=== PATIENT | female | born 1950 | race Caucasian/White ===

== ENCOUNTER 2017-06-11 09:04 | Day surgery (SDC) | payer MEDICARE ==
[~2017-06-11] VITALS: Ht 144.8 cm; Wt 63.0 kg
[2017-06-11] MEDS ORDERED: SODIUM CHLORIDE 0.9% 1,000 ML IV SCH (09:44)
[2017-06-11] MEDS ORDERED: CEFAZOLIN PMX 1GM/50ML 50 ML IVPB ONE (10:00)
[2017-06-11 10:08] VITALS: BP 99/64
[2017-06-11] MEDS ORDERED: CITA20TA5 PO (10:14)
[2017-06-11] MEDS ORDERED: LOSA50TA6 PO (10:14)
[2017-06-11] MEDS ORDERED: SPIR25TA3 PO (10:14)
== END 2017-06-11 14:35 | disposition home or self-care (01) ==
LOC: OUT 09:04
PROVIDERS: ATTEND Internal Medicine Hematology & Oncology
DX: Z45.2 Encounter for adjustment and management of vascular access device (principal); C21.1 Malignant neoplasm of anal canal; I10 Essential (primary) hypertension; G62.9 Polyneuropathy, unspecified; Z87.39 Personal history of other diseases of the musculoskeletal system and connective tissue; Z90.710 Acquired absence of both cervix and uterus; Z98.890 Other specified postprocedural states
CPT/HCPCS: 36561; 77001; 99156; 99157; C1788; J0690; J1642; J2250; J3010; J3490; J7030

== ENCOUNTER 2017-06-17 10:00 | Inpatient (IN) | payer MEDICARE ==
[~2017-06-17] VITALS: Ht 144.8 cm; Wt 68.6 kg
[~2017-06-17 10:00] MED LIST: CITA20TA5 PO; LOSA50TA6 PO; SPIR25TA3 PO
[2017-06-17 11:56] LABS: BLOOD UREA NITROGEN 16 mg/dL (7-18); HEMATOCRIT 39.3 % (34.6-47.8)
[2017-06-17 11:59] LABS: ASPARTATE AMINO TRANSFERASE 14 U/L (15-37)
[2017-06-17 12:03] VITALS: BP 104/68
[2017-06-17 14:20] VITALS: BP 85/57
[2017-06-17] MEDS ORDERED: FAMOTIDINE 20 MG/2 ML IVPush ONE (15:00)
[2017-06-17] MEDS ORDERED: ONDANSETRON 8 MG, DEXAMETHASONE 10 MG in SODIUM CHLORIDE 0.9% 50 ML IVPB ONE (15:00)
[2017-06-17] MEDS ORDERED: ACETAMINOPHEN 325 MG TABLET PO ONE (15:00)
[2017-06-17] MEDS: SODIUM CHLORIDE 0.9% 1,000 ML IV SCH (15:30)
[2017-06-17] MEDS ORDERED: MITOMYCIN IV ONE (15:30)
[2017-06-17] MEDS ORDERED: SODIUM CHLORIDE 0.9% IV ONE (15:30)
[2017-06-17] MEDS: ENOXAPARIN 40 MG/0.4 ML SQ SCH (17:35)
[2017-06-17] MEDS: FLUOROURACIL 1,500 MG in SODIUM CHLORIDE 0.9% 1,000 ML IV SCH (18:37)
[2017-06-17 19:36] VITALS: BP 96/62
[2017-06-18 03:09] VITALS: BP 94/62
[2017-06-18] MEDS: SODIUM CHLORIDE 0.9% 1,000 ML IV SCH ×3 (03:45→20:30)
[2017-06-18 08:00] VITALS: BP 116/74
[2017-06-18] MEDS: SPIRONOLACTONE 25 MG TABLET PO SCH (09:31)
[2017-06-18] MEDS: CITALOPRAM 20 MG TABLET PO SCH (09:31)
[2017-06-18] MEDS: LOSARTAN 50MG TABLET PO SCH (09:32)
[2017-06-18 11:09] LABS: HEMOGLOBIN 11.2 g/dL (11.7-16.4); WHITE BLOOD COUNT 7.2 x10^3/uL (3.4-10)
[2017-06-18 11:22] LABS: ASPARTATE AMINO TRANSFERASE 10 U/L (15-37); BLOOD UREA NITROGEN 13 mg/dL (7-18)
[2017-06-18 12:45] VITALS: BP 104/70
[2017-06-18] MEDS: ONDANSETRON 8 MG in SODIUM CHLORIDE 0.9% 50 ML IVPB SCH (15:30)
[2017-06-18] MEDS: FAMOTIDINE 20 MG/2 ML IVPush SCH (15:46)
[2017-06-18] MEDS: ENOXAPARIN 40 MG/0.4 ML SQ SCH (16:56)
[2017-06-18 19:42] VITALS: BP 97/62
[2017-06-18] MEDS: FLUOROURACIL 1,500 MG in SODIUM CHLORIDE 0.9% 1,000 ML IV SCH (21:36)
[2017-06-19 01:29] VITALS: BP 100/58
[2017-06-19] MEDS: SODIUM CHLORIDE 0.9% 1,000 ML IV SCH ×2 (04:00→15:10)
[2017-06-19 04:30] LABS: HEMATOCRIT 32.8 % (34.6-47.8); HEMOGLOBIN 10.8 g/dL (11.7-16.4); WHITE BLOOD COUNT 6.2 x10^3/uL (3.4-10)
[2017-06-19 04:40] LABS: BLOOD UREA NITROGEN 12 mg/dL (7-18)
[2017-06-19 04:45] LABS: ASPARTATE AMINO TRANSFERASE 15 U/L (15-37)
[2017-06-19 07:19] VITALS: BP 134/88
[2017-06-19] MEDS: CITALOPRAM 20 MG TABLET PO SCH (07:22)
[2017-06-19] MEDS: SPIRONOLACTONE 25 MG TABLET PO SCH (07:22)
[2017-06-19] MEDS: LOSARTAN 50MG TABLET PO SCH (07:22)
[2017-06-19] MEDS: ONDANSETRON ODT 4 MG PO PRN (13:29)
[2017-06-19 13:55] VITALS: BP 87/58
[2017-06-19] MEDS: ONDANSETRON 8 MG in SODIUM CHLORIDE 0.9% 50 ML IVPB SCH (15:10)
[2017-06-19] MEDS: FAMOTIDINE 20 MG/2 ML IVPush SCH (15:12)
[2017-06-19] MEDS: ENOXAPARIN 40 MG/0.4 ML SQ SCH (17:10)
[2017-06-19 19:46] VITALS: BP 90/54
[2017-06-19] MEDS: FLUOROURACIL 1,500 MG in SODIUM CHLORIDE 0.9% 1,000 ML IV SCH (23:09)
[2017-06-20] MEDS: SODIUM CHLORIDE 0.9% 1,000 ML IV SCH
[2017-06-20 02:58] VITALS: BP 95/58
[2017-06-20 06:15] LABS: HEMATOCRIT 32.9 % (34.6-47.8); HEMOGLOBIN 10.9 g/dL (11.7-16.4); WHITE BLOOD COUNT 5.2 x10^3/uL (3.4-10)
[2017-06-20 06:27] LABS: ASPARTATE AMINO TRANSFERASE 14 U/L (15-37); BLOOD UREA NITROGEN 11 mg/dL (7-18)
[2017-06-20 07:19] VITALS: BP 117/77
[2017-06-20] MEDS: CITALOPRAM 20 MG TABLET PO SCH (08:59)
[2017-06-20] MEDS: SPIRONOLACTONE 25 MG TABLET PO SCH (08:59)
[2017-06-20] MEDS: LOSARTAN 50MG TABLET PO SCH (09:00)
[2017-06-20] MEDS: SODIUM CHLORIDE 0.45% 1,000 ML IV SCH (09:20)
[2017-06-20 13:34] VITALS: BP 109/70
[2017-06-20] MEDS: FAMOTIDINE 20 MG/2 ML IVPush SCH (15:03)
[2017-06-20] MEDS: ONDANSETRON 8 MG in SODIUM CHLORIDE 0.9% 50 ML IVPB SCH (15:34)
[2017-06-20] MEDS: ENOXAPARIN 40 MG/0.4 ML SQ SCH (18:27)
[2017-06-20 19:16] VITALS: BP 125/73
[2017-06-21 01:54] VITALS: BP 131/86
[2017-06-21] MEDS: FLUOROURACIL 1,500 MG in SODIUM CHLORIDE 0.9% 1,000 ML IV SCH (03:14)
[2017-06-21] MEDS: SODIUM CHLORIDE 0.45% 1,000 ML IV SCH ×2 (03:35→22:26)
[2017-06-21 04:10] LABS: HEMATOCRIT 33.9 % (34.6-47.8); HEMOGLOBIN 11.2 g/dL (11.7-16.4); WHITE BLOOD COUNT 5.4 x10^3/uL (3.4-10)
[2017-06-21 04:21] LABS: ASPARTATE AMINO TRANSFERASE 15 U/L (15-37); BLOOD UREA NITROGEN 8 mg/dL (7-18)
[2017-06-21] MEDS: ONDANSETRON ODT 4 MG PO PRN ×3 (06:14→20:28)
[2017-06-21 06:16] VITALS: BP 115/74
[2017-06-21] MEDS: SPIRONOLACTONE 25 MG TABLET PO SCH (08:36)
[2017-06-21] MEDS: LOSARTAN 50MG TABLET PO SCH (08:36)
[2017-06-21] MEDS: CITALOPRAM 20 MG TABLET PO SCH (08:36)
[2017-06-21] MEDS: CALCIUM CARBONATE 500 MG TABLET PO SCH (08:36)
[2017-06-21 13:44] VITALS: BP 119/73
[2017-06-21] MEDS: FAMOTIDINE 20 MG/2 ML IVPush SCH (15:19)
[2017-06-21] MEDS: ENOXAPARIN 40 MG/0.4 ML SQ SCH (16:04)
[2017-06-21] MEDS: ONDANSETRON 8 MG in SODIUM CHLORIDE 0.9% 50 ML IVPB SCH (16:04)
[2017-06-21 19:38] VITALS: BP 109/75
[2017-06-22 01:54] VITALS: BP 111/65
[2017-06-22] MEDS: ONDANSETRON ODT 4 MG PO PRN ×3 (02:09→14:56)
[2017-06-22 05:36] LABS: HEMATOCRIT 33.6 % (34.6-47.8); HEMOGLOBIN 11.2 g/dL (11.7-16.4); WHITE BLOOD COUNT 4.7 x10^3/uL (3.4-10)
[2017-06-22 06:02] LABS: ASPARTATE AMINO TRANSFERASE 16 U/L (15-37); BLOOD UREA NITROGEN 6 mg/dL (7-18)
[2017-06-22 07:33] VITALS: BP 127/83
[2017-06-22] MEDS: SPIRONOLACTONE 25 MG TABLET PO SCH (08:03)
[2017-06-22] MEDS: LOSARTAN 50MG TABLET PO SCH (08:04)
[2017-06-22] MEDS: CITALOPRAM 20 MG TABLET PO SCH (08:04)
[2017-06-22] MEDS: CALCIUM CARBONATE 500 MG TABLET PO SCH (08:05)
[2017-06-22] MEDS: SODIUM CHLORIDE 0.45% 1,000 ML IV SCH (11:30)
[2017-06-22 14:23] VITALS: BP 96/86
[2017-06-22] MEDS ORDERED: ONDA4TAB13 PO (15:29)
[2017-06-22] MEDS ORDERED: ONDA4TAB10 PO (16:33)
== END 2017-06-22 17:12 | disposition home or self-care (01) | DRG 849 ==
LOC: 3NW 10:27
PROVIDERS: ADMIT Internal Medicine Hematology & Oncology; ATTEND Internal Medicine Hematology & Oncology
DX: Z51.0 Encounter for antineoplastic radiation therapy (principal); D64.81 Anemia due to antineoplastic chemotherapy; Z51.11 Encounter for antineoplastic chemotherapy; D01.3 Carcinoma in situ of anus and anal canal; M62.81 Muscle weakness (generalized); G47.30 Sleep apnea, unspecified; G62.9 Polyneuropathy, unspecified; M81.0 Age-related osteoporosis without current pathological fracture; T45.1X5A Adverse effect of antineoplastic and immunosuppressive drugs, initial encounter; Z85.048 Personal history of other malignant neoplasm of rectum, rectosigmoid junction, and anus; Z90.710 Acquired absence of both cervix and uterus
CPT/HCPCS: 36415; 77336; 77386; 80053; 81003; 83735; 85025; 87324; J1100; J1650; J2405; J9280; Q0162; J7030; J9190; S0028

== ENCOUNTER 2017-06-25 20:46 | Inpatient (IN) | payer MEDICARE ==
[~2017-06-25] VITALS: Ht 144.8 cm; Wt 58.7 kg
[~2017-06-25 20:46] MED LIST changes: +ONDA4TAB10 PO; +ONDA4TAB13 PO
[2017-06-25] MEDS ORDERED: ALBUTEROL/IPRATROPIUM 2.5MG/0.5MG, 3 ML NPPB ONE (21:00)
[2017-06-25] MEDS ORDERED: SODIUM CHLORIDE 0.9% 1,000 ML IV ONE (21:04)
[2017-06-25 21:17] LABS: HEMATOCRIT 31.8 % (34.6-47.8); HEMOGLOBIN 10.5 g/dL (11.7-16.4)
[2017-06-25 21:19] LABS: WHITE BLOOD COUNT 1.2 x10^3/uL (3.4-10)
[2017-06-25 21:23] LABS: ASPARTATE AMINO TRANSFERASE 53 U/L (15-37); BLOOD UREA NITROGEN 25 mg/dL (7-18)
[2017-06-25] MEDS ORDERED: SODIUM CHLORIDE FLUSH 10ML SYR IVF ONE (21:30)
[2017-06-25] MEDS ORDERED: ALBUTEROL/IPRATROPIUM 2.5MG/0.5MG, 3 ML ONE (21:34)
[2017-06-25 21:42] LABS: DIFF TOTAL CELLS COUNTED 100 CELL DIFF
[2017-06-25 21:50] LABS: VERIFY COUNTS? YES
[2017-06-25 21:52] LABS: ANISOCYTOSIS 1+
[2017-06-25] MEDS ORDERED: OMNIPAQUE 350 MG/ML, 100ML BOTTLE ONE (22:07)
[2017-06-25 22:21] LABS: IS PT STATUS REG ER OR PRE ER? YES
[2017-06-25] MEDS ORDERED: FUROSEMIDE 40 MG/4 ML IV ONE (22:30)
[2017-06-25] MEDS ORDERED: FUROSEMIDE 40 MG/4 ML ONE (22:40)
[2017-06-25] MEDS ORDERED: ONDANSETRON 2MG/ML, 2ML ONE (22:40)
[2017-06-25] MEDS ORDERED: ONDANSETRON 2MG/ML, 2ML IVPush ONE (23:00)
[2017-06-25] MEDS ORDERED: maalox/diphenh/lido/sucralfate 5 ML PO PRN (23:30)
[2017-06-26] MEDS ORDERED: DOCUSATE 100 MG CAPSULE PO PRN
[2017-06-26] MEDS ORDERED: ONDANSETRON 2MG/ML, 2ML IVPush PRN
[2017-06-26] MEDS ORDERED: BISACODYL 10 MG SUPP PR PRN
[2017-06-26] MEDS ORDERED: ENOXAPARIN 40 MG/0.4 ML SQ SCH
[2017-06-26] MEDS ORDERED: METOCLOPRAMIDE 5 MG/ML, 2ML IVPush PRN
[2017-06-26] MEDS ORDERED: PROMETHAZINE 25 MG/ML, 1ML IM PRN
[2017-06-26] MEDS ORDERED: HYDROcodone/APAP 5/325 TABLET PO PRN
[2017-06-26] MEDS ORDERED: POLYETHYLENE GLYCOL 17 GM PACKET PO PRN
[2017-06-26] MEDS ORDERED: VANCOMYCIN PER PHARMACY MC PRN
[2017-06-26 01:05] LABS: IS PT STATUS REG ER OR PRE ER? YES
[2017-06-26 01:20] VITALS: BP 132/85
[2017-06-26 01:23] VITALS: BP 132/85
[2017-06-26] MEDS ORDERED: PHARMACOKINETIC CONSULTATION MC ONE (01:30)
[2017-06-26] MEDS ORDERED: PHARMACOKINETIC MONITORING MC PRN (01:30)
[2017-06-26] MEDS: PIPERACILLIN/TAZO/PMX 3.375GM 50 ML IV SCH ×4 (02:09→20:21)
[2017-06-26] MEDS: VANCOMYCIN 1,300 MG in SODIUM CHLORIDE 0.9% 250 ML IV SCH (02:50)
[2017-06-26 06:01] LABS: HEMATOCRIT 32.7 % (34.6-47.8); HEMOGLOBIN 10.8 g/dL (11.7-16.4)
[2017-06-26 06:07] LABS: IS PT STATUS REG ER OR PRE ER? NO
[2017-06-26 06:32] LABS: ASPARTATE AMINO TRANSFERASE 48 U/L (15-37); BLOOD UREA NITROGEN 21 mg/dL (7-18)
[2017-06-26 06:34] LABS: DIFF TOTAL CELLS COUNTED 100 CELL DIFF
[2017-06-26 06:39] LABS: VERIFY COUNTS? YES
[2017-06-26] MEDS ORDERED: FUROSEMIDE 20 MG/2 ML IV SCH (07:30)
[2017-06-26] MEDS ORDERED: TBO-FILGRASTIM 480 MCG/0.8 ML SQ ONE (08:00)
[2017-06-26 08:19] VITALS: BP 97/64
[2017-06-26] MEDS: SENNA/DOCUSATE TABLET PO SCH (08:27)
[2017-06-26] MEDS: CITALOPRAM 20 MG TABLET PO SCH (08:27)
[2017-06-26] MEDS: ACETAMINOPHEN 325 MG TABLET PO PRN (08:46)
[2017-06-26] MEDS ORDERED: LOSARTAN 50MG TABLET PO SCH (09:00)
[2017-06-26] MEDS: FUROSEMIDE 20 MG/2 ML IV SCH (09:00)
[2017-06-26] MEDS: LOSARTAN 50MG TABLET PO SCH (09:00)
[2017-06-26] MEDS ORDERED: IBUPROFEN 200 MG TABLET PO PRN (09:00)
[2017-06-26] MEDS: SPIRONOLACTONE 25 MG TABLET PO SCH (09:00)
[2017-06-26] MEDS ORDERED: maalox/diphenh/lido/sucralfate 5 ML PO PRN (09:30)
[2017-06-26 13:49] VITALS: BP 135/87
[2017-06-26] MEDS: NYSTATIN 500,000 UNITS/5 ML UDC PO SCH ×3 (14:18→20:21)
[2017-06-26] MEDS: morphine SULFATE 10 MG/ML, 1ML IVPush PRN ×2 (14:35→17:25)
[2017-06-26] MEDS: maalox/diphenh/lido/sucralfate 5 ML PO SCH ×2 (16:00→20:27)
[2017-06-26] MEDS ORDERED: BENZOCAINE 20% SPRAY 0.5ML ONE (16:05)
[2017-06-26] MEDS ORDERED: LIDOCAINE GEL 2%, 5ML ONE (16:05)
[2017-06-26] MEDS ORDERED: OMNIPAQUE 350 MG/ML, 50 ML BOTTLE ONE (17:07)
[2017-06-26 19:22] VITALS: BP 117/78
[2017-06-27 00:50] VITALS: BP 133/83
[2017-06-27] MEDS: PIPERACILLIN/TAZO/PMX 3.375GM 50 ML IV SCH ×4 (02:16→20:18)
[2017-06-27 05:10] LABS: ASPARTATE AMINO TRANSFERASE 35 U/L (15-37); BLOOD UREA NITROGEN 18 mg/dL (7-18)
[2017-06-27 05:29] LABS: IS PT STATUS REG ER OR PRE ER? NO
[2017-06-27 05:34] LABS: HEMATOCRIT 31.7 % (34.6-47.8); HEMOGLOBIN 10.5 g/dL (11.7-16.4)
[2017-06-27 05:36] LABS: WHITE BLOOD COUNT 0.7 x10^3/uL (3.4-10)
[2017-06-27 05:44] LABS: DIFF TOTAL CELLS COUNTED 100 CELL DIFF
[2017-06-27 05:45] LABS: VERIFY COUNTS? YES
[2017-06-27] MEDS: NYSTATIN 500,000 UNITS/5 ML UDC PO SCH ×4 (06:19→20:18)
[2017-06-27] MEDS: maalox/diphenh/lido/sucralfate 5 ML PO SCH ×4 (07:00→20:18)
[2017-06-27 07:37] VITALS: BP 129/78
[2017-06-27] MEDS: FUROSEMIDE 20 MG/2 ML IV SCH (09:00)
[2017-06-27] MEDS: SENNA/DOCUSATE TABLET PO SCH (09:00)
[2017-06-27] MEDS: SPIRONOLACTONE 25 MG TABLET PO SCH (09:24)
[2017-06-27] MEDS: CITALOPRAM 20 MG TABLET PO SCH (09:24)
[2017-06-27] MEDS: LOSARTAN 50MG TABLET PO SCH (09:25)
[2017-06-27] MEDS: TBO-FILGRASTIM 300 MCG/0.5 ML SQ SCH (10:25)
[2017-06-27 13:24] VITALS: BP 143/80
[2017-06-27] MEDS: VANCOMYCIN 1,300 MG in SODIUM CHLORIDE 0.9% 250 ML IV SCH (13:24)
[2017-06-27] MEDS ORDERED: FLUCONAZOLE 200 MG/100 ML 100 ML IV SCH (17:00)
[2017-06-27] MEDS ORDERED: POTASSIUM PHOSPHATE 44 MEQ in SODIUM CHLORIDE 0.9% 500 ML IV ONE (17:00)
[2017-06-27 19:54] VITALS: BP 138/83
[2017-06-28 00:20] VITALS: BP 143/83
[2017-06-28] MEDS ORDERED: ALBUTEROL SULFATE 2.5 MG/3 ML ONE ×2 (01:34→07:38)
[2017-06-28] MEDS: PIPERACILLIN/TAZO/PMX 3.375GM 50 ML IV SCH ×4 (01:35→19:32)
[2017-06-28] MEDS: ALBUTEROL SULFATE 2.5MG/0.5ML NPPB SCH ×2 (01:39→07:00)
[2017-06-28] MEDS: NYSTATIN 500,000 UNITS/5 ML UDC PO SCH ×4 (06:06→19:32)
[2017-06-28 06:16] LABS: BLOOD UREA NITROGEN 17 mg/dL (7-18); HEMATOCRIT 30.1 % (34.6-47.8)
[2017-06-28 06:22] LABS: WHITE BLOOD COUNT 0.4 x10^3/uL (3.4-10)
[2017-06-28 07:02] LABS: DIFF TOTAL CELLS COUNTED 50 CELL DIFFERENTIAL; VERIFY COUNTS? YES
[2017-06-28 07:54] VITALS: BP 136/95
[2017-06-28] MEDS: maalox/diphenh/lido/sucralfate 5 ML PO SCH ×4 (08:55→19:32)
[2017-06-28] MEDS: CITALOPRAM 20 MG TABLET PO SCH (08:56)
[2017-06-28] MEDS: TBO-FILGRASTIM 300 MCG/0.5 ML SQ SCH (08:56)
[2017-06-28] MEDS: FUROSEMIDE 20 MG/2 ML IV SCH (08:56)
[2017-06-28] MEDS: SPIRONOLACTONE 25 MG TABLET PO SCH (08:56)
[2017-06-28] MEDS: LOSARTAN 50MG TABLET PO SCH (08:57)
[2017-06-28] MEDS: SENNA/DOCUSATE TABLET PO SCH (08:57)
[2017-06-28] MEDS ORDERED: POTASSIUM CHLORIDE 40 MEQ in SODIUM CHLORIDE 0.9% 500 ML IV ONE (09:00)
[2017-06-28] MEDS: ALBUTEROL SULFATE 2.5 MG/3 ML NPPB SCH ×3 (11:20→19:57)
[2017-06-28] MEDS: FLUCONAZOLE 400 MG/200 ML 200 ML IV SCH (16:36)
[2017-06-28 20:20] VITALS: BP 177/83
[2017-06-29] MEDS: VANCOMYCIN 1,300 MG in SODIUM CHLORIDE 0.9% 250 ML IV SCH (01:39)
[2017-06-29 02:34] VITALS: BP 148/72
[2017-06-29] MEDS: ALBUTEROL SULFATE 2.5 MG/3 ML NPPB SCH ×5 (03:02→18:30)
[2017-06-29] MEDS: PIPERACILLIN/TAZO/PMX 3.375GM 50 ML IV SCH ×4 (03:47→20:33)
[2017-06-29] MEDS: NYSTATIN 500,000 UNITS/5 ML UDC PO SCH ×4 (06:16→20:34)
[2017-06-29] MEDS: FUROSEMIDE 20 MG/2 ML IV SCH (07:21)
[2017-06-29] MEDS: LOSARTAN 50MG TABLET PO SCH (08:07)
[2017-06-29] MEDS: SPIRONOLACTONE 25 MG TABLET PO SCH (08:07)
[2017-06-29] MEDS: CITALOPRAM 20 MG TABLET PO SCH (08:08)
[2017-06-29] MEDS: maalox/diphenh/lido/sucralfate 5 ML PO SCH ×4 (08:08→20:33)
[2017-06-29 08:43] LABS: BLOOD UREA NITROGEN 19 mg/dL (7-18)
[2017-06-29] MEDS: TBO-FILGRASTIM 300 MCG/0.5 ML SQ SCH (08:54)
[2017-06-29] MEDS: SENNA/DOCUSATE TABLET PO SCH (09:00)
[2017-06-29 09:12] VITALS: BP 148/91
[2017-06-29] MEDS ORDERED: POTASSIUM CHLORIDE 40 MEQ in SODIUM CHLORIDE 0.9% 500 ML IV ONE (10:00)
[2017-06-29 10:46] LABS: HEMATOCRIT 30.9 % (34.6-47.8); HEMOGLOBIN 10.3 g/dL (11.7-16.4); WHITE BLOOD COUNT 0.2 x10^3/uL (3.4-10)
[2017-06-29 10:47] LABS: DIFF TOTAL CELLS COUNTED 25 CELL DIFFERENTIAL
[2017-06-29 10:52] LABS: VERIFY COUNTS? YES
[2017-06-29] MEDS: ACETAMINOPHEN 325 MG TABLET PO PRN (11:41)
[2017-06-29 14:26] VITALS: BP 151/87
[2017-06-29] MEDS: FLUCONAZOLE 400 MG/200 ML 200 ML IV SCH (16:06)
[2017-06-29] MEDS ORDERED: PHARMACOKINETIC MONITORING MC PRN (20:00)
[2017-06-29] MEDS ORDERED: HYDROcodone/APAP 5/325 TABLET PO PRN (20:00)
[2017-06-29] MEDS ORDERED: BISACODYL 10 MG SUPP PR PRN (20:00)
[2017-06-29] MEDS ORDERED: PROMETHAZINE 25 MG/ML, 1ML IM PRN (20:00)
[2017-06-29] MEDS ORDERED: METOCLOPRAMIDE 5 MG/ML, 2ML IVPush PRN (20:00)
[2017-06-29] MEDS ORDERED: ONDANSETRON 2MG/ML, 2ML IVPush PRN (20:00)
[2017-06-29] MEDS ORDERED: DOCUSATE 100 MG CAPSULE PO PRN (20:00)
[2017-06-29 20:10] VITALS: BP 144/91
[2017-06-29] MEDS: morphine SULFATE 10 MG/ML, 1ML IVPush PRN (20:33)
[2017-06-30] MEDS: NYSTATIN 500,000 UNITS/5 ML UDC PO SCH ×4 (02:12→20:30)
[2017-06-30] MEDS: PIPERACILLIN/TAZO/PMX 3.375GM 50 ML IV SCH ×4 (02:12→20:30)
[2017-06-30 02:19] VITALS: BP 152/88
[2017-06-30 05:15] LABS: HEMATOCRIT 28.9 % (34.6-47.8); HEMOGLOBIN 9.6 g/dL (11.7-16.4)
[2017-06-30 05:16] LABS: WHITE BLOOD COUNT 0.3 x10^3/uL (3.4-10)
[2017-06-30 05:29] LABS: BLOOD UREA NITROGEN 18 mg/dL (7-18)
[2017-06-30 05:32] LABS: ASPARTATE AMINO TRANSFERASE 35 U/L (15-37)
[2017-06-30 06:11] LABS: DIFF TOTAL CELLS COUNTED 25 CELL DIFFERENTIAL
[2017-06-30 06:21] LABS: VERIFY COUNTS? YES
[2017-06-30] MEDS: maalox/diphenh/lido/sucralfate 5 ML PO SCH ×4 (07:00→20:31)
[2017-06-30] MEDS: SENNA/DOCUSATE TABLET PO SCH (07:18)
[2017-06-30 07:46] VITALS: BP 158/90
[2017-06-30] MEDS: FUROSEMIDE 20 MG/2 ML IV SCH (08:00)
[2017-06-30] MEDS: ALBUTEROL SULFATE 2.5 MG/3 ML NPPB SCH ×4 (08:00→19:45)
[2017-06-30] MEDS ORDERED: SPIRONOLACTONE 25 MG TABLET PO SCH ×2 (09:00)
[2017-06-30] MEDS ORDERED: POTASSIUM CHLORIDE 20 MEQ TAB.ER.PRT NG SCH (09:00)
[2017-06-30] MEDS ORDERED: LOSARTAN 50MG TABLET PO SCH ×2 (09:00)
[2017-06-30] MEDS: TBO-FILGRASTIM 480 MCG/0.8 ML SQ SCH (11:39)
[2017-06-30] MEDS ORDERED: VANCOMYCIN 1,300 MG in SODIUM CHLORIDE 0.9% 250 ML IV SCH (15:30)
[2017-06-30 16:00] VITALS: BP 152/91
[2017-06-30] MEDS: POTASSIUM CHLORIDE 40 MEQ in SODIUM CHLORIDE 0.9% 500 ML IV SCH (16:10)
[2017-06-30] MEDS ORDERED: ACETAMINOPHEN 325 MG/10.15 ML UDC NG PRN (16:30)
[2017-06-30] MEDS ORDERED: KETOROLAC 30 MG/1 ML IVPush PRN ×2 (17:00)
[2017-06-30] MEDS: FLUCONAZOLE 400 MG/200 ML 200 ML IV SCH (17:38)
[2017-06-30 19:02] VITALS: BP 106/60
[2017-07-01 01:08] VITALS: BP 157/82
[2017-07-01] MEDS: PIPERACILLIN/TAZO/PMX 3.375GM 50 ML IV SCH ×2 (01:38→08:02)
[2017-07-01 04:58] LABS: HEMATOCRIT 27.7 % (34.6-47.8); HEMOGLOBIN 9.3 g/dL (11.7-16.4)
[2017-07-01 04:59] LABS: WHITE BLOOD COUNT 0.8 x10^3/uL (3.4-10)
[2017-07-01 05:00] LABS: ASPARTATE AMINO TRANSFERASE 22 U/L (15-37); BLOOD UREA NITROGEN 18 mg/dL (7-18)
[2017-07-01 05:50] LABS: DIFF TOTAL CELLS COUNTED 100 CELL DIFF
[2017-07-01 05:55] LABS: VERIFY COUNTS? YES
[2017-07-01] MEDS: maalox/diphenh/lido/sucralfate 5 ML PO SCH ×4 (06:06→21:00)
[2017-07-01] MEDS: NYSTATIN 500,000 UNITS/5 ML UDC PO SCH ×4 (06:06→20:59)
[2017-07-01 07:08] VITALS: BP 154/88
[2017-07-01] MEDS: FUROSEMIDE 20 MG/2 ML IV SCH (08:03)
[2017-07-01] MEDS: SENNA/DOCUSATE TABLET PO SCH (08:03)
[2017-07-01] MEDS: ALBUTEROL SULFATE 2.5 MG/3 ML NPPB SCH ×3 (08:35→16:20)
[2017-07-01] MEDS ORDERED: POTASSIUM CHLORIDE 40 MEQ in SODIUM CHLORIDE 0.9% 500 ML IV SCH (09:00)
[2017-07-01] MEDS: POTASSIUM CHLORIDE 40 MEQ in SODIUM CHLORIDE 0.9% 500 ML IV SCH (09:56)
[2017-07-01] MEDS: TBO-FILGRASTIM 480 MCG/0.8 ML SQ SCH (09:56)
[2017-07-01] MEDS ORDERED: POTASSIUM PHOSPHATE 44 MEQ in SODIUM CHLORIDE 0.9% 500 ML IV ONE (10:00)
[2017-07-01] MEDS ORDERED: LIDOCAINE GEL 2%, 5ML ONE (10:20)
[2017-07-01] MEDS: CEFEPIME 2 GM in DEXTROSE 5% 100 ML IV SCH ×2 (12:25→21:00)
[2017-07-01] MEDS: METRONIDAZOLE PMX 500MG/100ML 100 ML IV SCH ×2 (13:15→21:00)
[2017-07-01 13:32] VITALS: BP 135/82
[2017-07-01] MEDS: FLUCONAZOLE 400 MG/200 ML 200 ML IV SCH (15:19)
[2017-07-01 19:32] VITALS: BP 129/75
[2017-07-01] MEDS: morphine SULFATE 10 MG/ML, 1ML IVPush PRN (23:41)
[2017-07-02 02:14] VITALS: BP 140/80
[2017-07-02] MEDS: CEFEPIME 2 GM in DEXTROSE 5% 100 ML IV SCH ×3 (03:02→20:40)
[2017-07-02] MEDS: METRONIDAZOLE PMX 500MG/100ML 100 ML IV SCH ×3 (03:39→19:43)
[2017-07-02] MEDS: maalox/diphenh/lido/sucralfate 5 ML PO SCH ×4 (05:16→19:44)
[2017-07-02] MEDS: NYSTATIN 500,000 UNITS/5 ML UDC PO SCH ×4 (05:16→19:43)
[2017-07-02 05:46] LABS: HEMATOCRIT 27.3 % (34.6-47.8); HEMOGLOBIN 9.2 g/dL (11.7-16.4); WHITE BLOOD COUNT 2.2 x10^3/uL (3.4-10)
[2017-07-02 05:54] LABS: BLOOD UREA NITROGEN 23 mg/dL (7-18)
[2017-07-02 06:23] LABS: DIFF TOTAL CELLS COUNTED 100 CELL DIFF
[2017-07-02 06:27] LABS: VERIFY COUNTS? YES
[2017-07-02 06:49] VITALS: BP 149/84
[2017-07-02] MEDS ORDERED: POTASSIUM PHOSPHATE 44 MEQ in SODIUM CHLORIDE 0.9% 500 ML IV ONE (07:00)
[2017-07-02] MEDS: FUROSEMIDE 20 MG/2 ML IV SCH (08:34)
[2017-07-02] MEDS: POTASSIUM CHLORIDE 40 MEQ in SODIUM CHLORIDE 0.9% 500 ML IV SCH (11:28)
[2017-07-02] MEDS: TBO-FILGRASTIM 480 MCG/0.8 ML SQ SCH (11:43)
[2017-07-02 12:50] VITALS: BP 134/74
[2017-07-02] MEDS: FLUCONAZOLE 400 MG/200 ML 200 ML IV SCH (15:38)
[2017-07-02] MEDS ORDERED: ALBUTEROL SULFATE 2.5 MG/3 ML NPPB PRN (20:00)
[2017-07-02 20:08] VITALS: BP 148/79
[2017-07-03] MEDS: METRONIDAZOLE PMX 500MG/100ML 100 ML IV SCH ×3 (04:00→21:17)
[2017-07-03] MEDS: CEFEPIME 2 GM in DEXTROSE 5% 100 ML IV SCH ×3 (04:00→20:25)
[2017-07-03] MEDS: NYSTATIN 500,000 UNITS/5 ML UDC PO SCH ×4 (06:00→20:25)
[2017-07-03] MEDS: maalox/diphenh/lido/sucralfate 5 ML PO SCH ×4 (07:00→20:25)
[2017-07-03] MEDS ORDERED: MORPHINE SULFATE 4 MG/ML, 1ML ONE (07:57)
[2017-07-03 08:00] VITALS: BP 148/84
[2017-07-03] MEDS: morphine SULFATE 10 MG/ML, 1ML IVPush PRN ×4 (08:00→22:09)
[2017-07-03 08:11] LABS: ABSOLUTE CD 4 HELPER 61 /uL (359-1519); HEMATOCRIT 30.7 % (34.0-46.6); HEMATOLOGY COMMENTS Note: (.); HEMOGLOBIN 10.3 g/dL (11.1-15.9); MCH 30.7 pg (26.6-33.0); MCHC 33.6 g/dL (31.5-35.7); MCV 91 fL (79-97); METAMYELOCYTES 7 % (0 - 0); MONOCYTES 11 % (.); NEUTROPHILS 75 % (.); NEUTROPHILS (ABSOLUTE) 0.9 x10E3/uL (1.4-7.0); NRBC 1 % (0 - 0); PLATELETS 18 x10E3/uL (150-379); RBC 3.36 x10E6/uL (3.77-5.28); RDW 14.6 % (12.3-15.4); WBC 1.2 x10E3/uL (3.4-10.8)
[2017-07-03 08:19] LABS: BLOOD UREA NITROGEN 22 mg/dL (7-18)
[2017-07-03 08:25] LABS: HEMATOCRIT 27.6 % (34.6-47.8); HEMOGLOBIN 9.2 g/dL (11.7-16.4); WHITE BLOOD COUNT 2.6 x10^3/uL (3.4-10)
[2017-07-03] MEDS: FUROSEMIDE 20 MG/2 ML IV SCH (09:00)
[2017-07-03] MEDS: TBO-FILGRASTIM 480 MCG/0.8 ML SQ SCH (09:00)
[2017-07-03 13:40] VITALS: BP 147/76
[2017-07-03 13:46] LABS: DIFF TOTAL CELLS COUNTED 100 CELL DIFF
[2017-07-03 13:58] LABS: ANISOCYTOSIS 1+
[2017-07-03] MEDS ORDERED: SODIUM PHOSPHATE 4 MEQ/ML IV SCH (14:00)
[2017-07-03] MEDS ORDERED: SODIUM PHOSPHATE 30 MMOL in SODIUM CHLORIDE 0.9% 500 ML IV ONE (14:30)
[2017-07-03] MEDS: FLUCONAZOLE 400 MG/200 ML 200 ML IV SCH (15:44)
[2017-07-03 16:53] LABS: VERIFY COUNTS? YES
[2017-07-03 19:20] VITALS: BP 164/87
[2017-07-04 01:05] VITALS: BP 162/87
[2017-07-04 01:28] LABS: HEMATOCRIT 27.9 % (34.6-47.8); HEMOGLOBIN 9.2 g/dL (11.7-16.4); WHITE BLOOD COUNT 3.3 x10^3/uL (3.4-10)
[2017-07-04 01:38] LABS: ASPARTATE AMINO TRANSFERASE 28 U/L (15-37); BLOOD UREA NITROGEN 22 mg/dL (7-18)
[2017-07-04 01:53] LABS: DIFF TOTAL CELLS COUNTED 100 CELL DIFF
[2017-07-04 01:56] LABS: ANISOCYTOSIS 1+; VERIFY COUNTS? YES
[2017-07-04] MEDS: CEFEPIME 2 GM in DEXTROSE 5% 100 ML IV SCH ×3 (04:13→19:50)
[2017-07-04] MEDS: morphine SULFATE 10 MG/ML, 1ML IVPush PRN ×5 (04:13→19:36)
[2017-07-04] MEDS: METRONIDAZOLE PMX 500MG/100ML 100 ML IV SCH ×3 (05:22→20:40)
[2017-07-04] MEDS: NYSTATIN 500,000 UNITS/5 ML UDC PO SCH ×4 (05:55→20:41)
[2017-07-04] MEDS: maalox/diphenh/lido/sucralfate 5 ML PO SCH ×4 (08:00→20:41)
[2017-07-04 08:41] VITALS: BP 142/53
[2017-07-04] MEDS: FUROSEMIDE 20 MG/2 ML IV SCH (09:45)
[2017-07-04 14:19] VITALS: BP 134/80
[2017-07-04] MEDS: FLUCONAZOLE 400 MG/200 ML 200 ML IV SCH (15:57)
[2017-07-04 20:55] VITALS: BP 113/84
[2017-07-04 21:07] LABS: ADENOVIRUS PCR Negative (Negative); INFLUENZA A PCR Negative (Negative); INFLUENZA B PCR Negative (Negative); METAPNEUMOVIRUS PCR Negative (Negative); PARAINFLUENZA 1 PCR Negative (Negative); PARAINFLUENZA 2 PCR Negative (Negative); PARAINFLUENZA 3 PCR Negative (Negative); RESP SYNCYTIAL VIRUS A PCR Negative (Negative); RESP SYNCYTIAL VIRUS B PCR Negative (Negative); RHINOVIRUS PCR Negative (Negative)
[2017-07-05 02:07] VITALS: BP 139/81
[2017-07-05] MEDS: CEFEPIME 2 GM in DEXTROSE 5% 100 ML IV SCH ×3 (03:50→20:01)
[2017-07-05] MEDS: METRONIDAZOLE PMX 500MG/100ML 100 ML IV SCH ×3 (04:35→21:11)
[2017-07-05 04:37] LABS: BLOOD UREA NITROGEN 20 mg/dL (7-18)
[2017-07-05 04:41] LABS: ASPARTATE AMINO TRANSFERASE 44 U/L (15-37)
[2017-07-05 04:50] LABS: HEMATOCRIT 27.7 % (34.6-47.8); HEMOGLOBIN 9.4 g/dL (11.7-16.4); WHITE BLOOD COUNT 3.6 x10^3/uL (3.4-10)
[2017-07-05 05:37] LABS: DIFF TOTAL CELLS COUNTED 100 CELL DIFF
[2017-07-05 05:39] LABS: ANISOCYTOSIS 1+; VERIFY COUNTS? YES
[2017-07-05 05:41] LABS: POLYCHROMASIA 1+
[2017-07-05] MEDS: NYSTATIN 500,000 UNITS/5 ML UDC PO SCH ×5 (05:59→20:01)
[2017-07-05] MEDS: morphine SULFATE 10 MG/ML, 1ML IVPush PRN ×4 (05:59→19:39)
[2017-07-05 06:25] VITALS: BP 129/88
[2017-07-05] MEDS: maalox/diphenh/lido/sucralfate 5 ML PO SCH ×4 (09:40→20:01)
[2017-07-05] MEDS: FUROSEMIDE 20 MG/2 ML IV SCH (09:46)
[2017-07-05 14:15] VITALS: BP 128/55
[2017-07-05] MEDS: FLUCONAZOLE 400 MG/200 ML 200 ML IV SCH (16:03)
[2017-07-05 19:25] VITALS: BP 134/82
[2017-07-05] MEDS ORDERED: MORPHINE SULFATE 4 MG/ML, 1ML ONE (19:34)
[2017-07-06] MEDS: morphine SULFATE 10 MG/ML, 1ML IVPush PRN ×4 (01:20→22:59)
[2017-07-06 01:53] VITALS: BP 131/72
[2017-07-06] MEDS: CEFEPIME 2 GM in DEXTROSE 5% 100 ML IV SCH ×3 (03:24→22:58)
[2017-07-06] MEDS: METRONIDAZOLE PMX 500MG/100ML 100 ML IV SCH ×3 (04:20→20:38)
[2017-07-06] MEDS: NYSTATIN 500,000 UNITS/5 ML UDC PO SCH ×4 (05:49→20:38)
[2017-07-06 06:03] LABS: HEMATOCRIT 28.8 % (34.6-47.8); HEMOGLOBIN 9.5 g/dL (11.7-16.4); WHITE BLOOD COUNT 3.1 x10^3/uL (3.4-10)
[2017-07-06 06:15] LABS: ASPARTATE AMINO TRANSFERASE 44 U/L (15-37); BLOOD UREA NITROGEN 18 mg/dL (7-18)
[2017-07-06 06:41] VITALS: BP 133/80
[2017-07-06 06:50] LABS: DIFF TOTAL CELLS COUNTED 100 CELL DIFF
[2017-07-06 06:59] LABS: ANISOCYTOSIS 1+; LARGE PLATELETS 1+; POLYCHROMASIA 1+
[2017-07-06 07:00] LABS: VERIFY COUNTS? YES
[2017-07-06] MEDS: maalox/diphenh/lido/sucralfate 5 ML PO SCH ×4 (07:00→20:39)
[2017-07-06] MEDS: FUROSEMIDE 20 MG/2 ML IV SCH (09:38)
[2017-07-06] MEDS ORDERED: POTASSIUM CHLORIDE 20 MEQ TAB.ER.PRT PO ONE (11:30)
[2017-07-06 13:16] VITALS: BP 132/79
[2017-07-06] MEDS ORDERED: ONDANSETRON 2MG/ML, 2ML IVPush PRN (15:30)
[2017-07-06] MEDS ORDERED: POLYETHYLENE GLYCOL 17 GM PACKET PO PRN (15:30)
[2017-07-06] MEDS ORDERED: PROMETHAZINE 25 MG/ML, 1ML IM PRN (15:30)
[2017-07-06] MEDS ORDERED: BISACODYL 10 MG SUPP PR PRN (15:30)
[2017-07-06] MEDS ORDERED: METOCLOPRAMIDE 5 MG/ML, 2ML IVPush PRN (15:30)
[2017-07-06] MEDS: FLUCONAZOLE 400 MG/200 ML 200 ML IV SCH (16:17)
[2017-07-06] MEDS ORDERED: POTASSIUM CHLORIDE 40 MEQ in SODIUM CHLORIDE 0.9% 500 ML IV ONE (18:00)
[2017-07-06] MEDS ORDERED: ALBUMIN HUMAN 25% 100 ML IV ONE (19:00)
[2017-07-06 19:34] VITALS: BP 144/82
[2017-07-06] MEDS ORDERED: POTASSIUM CHLORIDE 40 MEQ in SODIUM CHLORIDE 0.9% 100 ML IV SCH (21:00)
[2017-07-06] MEDS ORDERED: MORPHINE SULFATE 4 MG/ML, 1ML ONE (22:55)
[2017-07-07 01:46] VITALS: BP 140/76
[2017-07-07] MEDS: METRONIDAZOLE PMX 500MG/100ML 100 ML IV SCH ×3 (05:02→21:21)
[2017-07-07] MEDS ORDERED: MORPHINE SULFATE 4 MG/ML, 1ML ONE (05:50)
[2017-07-07] MEDS: NYSTATIN 500,000 UNITS/5 ML UDC PO SCH ×4 (05:54→21:21)
[2017-07-07] MEDS: morphine SULFATE 10 MG/ML, 1ML IVPush PRN ×5 (05:54→18:27)
[2017-07-07] MEDS: CEFEPIME 2 GM in DEXTROSE 5% 100 ML IV SCH ×3 (06:45→23:17)
[2017-07-07 08:14] VITALS: BP 138/84
[2017-07-07] MEDS: maalox/diphenh/lido/sucralfate 5 ML PO SCH ×4 (08:30→21:00)
[2017-07-07] MEDS ORDERED: ALBUMIN HUMAN 25% 100 ML IV ONE (10:00)
[2017-07-07 10:40] LABS: HEMATOCRIT 30.5 % (34.6-47.8); HEMOGLOBIN 10.1 g/dL (11.7-16.4)
[2017-07-07 10:41] LABS: DIFF TOTAL CELLS COUNTED 100 CELL DIFF
[2017-07-07 10:50] LABS: ASPARTATE AMINO TRANSFERASE 45 U/L (15-37); BLOOD UREA NITROGEN 14 mg/dL (7-18)
[2017-07-07 11:00] LABS: ANISOCYTOSIS 1+; POLYCHROMASIA 1+; VERIFY COUNTS? YES
[2017-07-07 11:01] LABS: OVALOCYTES 1+
[2017-07-07] MEDS: FUROSEMIDE 20 MG/2 ML IV SCH (12:32)
[2017-07-07 13:30] VITALS: BP 166/70
[2017-07-07] MEDS: FLUCONAZOLE 400 MG/200 ML 200 ML IV SCH (16:27)
[2017-07-07 19:37] VITALS: BP 134/80
[2017-07-08 02:21] VITALS: BP 120/75
[2017-07-08] MEDS: NYSTATIN 500,000 UNITS/5 ML UDC PO SCH ×4 (04:56→20:46)
[2017-07-08] MEDS: METRONIDAZOLE PMX 500MG/100ML 100 ML IV SCH ×3 (04:57→20:46)
[2017-07-08] MEDS: morphine SULFATE 10 MG/ML, 1ML IVPush PRN ×2 (05:09→20:46)
[2017-07-08 05:17] LABS: HEMATOCRIT 27.6 % (34.6-47.8); HEMOGLOBIN 9.3 g/dL (11.7-16.4); WHITE BLOOD COUNT 4.4 x10^3/uL (3.4-10)
[2017-07-08 05:39] LABS: ASPARTATE AMINO TRANSFERASE 41 U/L (15-37); BLOOD UREA NITROGEN 14 mg/dL (7-18)
[2017-07-08] MEDS: maalox/diphenh/lido/sucralfate 5 ML PO SCH ×4 (07:00→20:46)
[2017-07-08] MEDS: CEFEPIME 2 GM in DEXTROSE 5% 100 ML IV SCH ×3 (07:32→22:53)
[2017-07-08 07:38] VITALS: BP 137/80
[2017-07-08] MEDS ORDERED: POTASSIUM PHOSPHATE 44 MEQ in SODIUM CHLORIDE 0.9% 500 ML IV ONE (08:30)
[2017-07-08] MEDS ORDERED: POTASSIUM PHOS 4.4 MEQ/ML IV SCH (08:30)
[2017-07-08] MEDS: FUROSEMIDE 20 MG/2 ML IV SCH (09:50)
[2017-07-08 13:55] VITALS: BP 128/85
[2017-07-08] MEDS: FLUCONAZOLE 400 MG/200 ML 200 ML IV SCH (16:06)
[2017-07-08 19:33] VITALS: BP 137/84
[2017-07-09 01:49] VITALS: BP 131/82
[2017-07-09] MEDS: NYSTATIN 500,000 UNITS/5 ML UDC PO SCH ×4 (05:56→21:03)
[2017-07-09] MEDS: METRONIDAZOLE PMX 500MG/100ML 100 ML IV SCH ×3 (05:56→21:03)
[2017-07-09 06:20] LABS: HEMATOCRIT 26.7 % (34.6-47.8); HEMOGLOBIN 8.9 g/dL (11.7-16.4)
[2017-07-09 06:27] LABS: ASPARTATE AMINO TRANSFERASE 35 U/L (15-37); BLOOD UREA NITROGEN 15 mg/dL (7-18)
[2017-07-09] MEDS: maalox/diphenh/lido/sucralfate 5 ML PO SCH ×4 (07:00→21:00)
[2017-07-09 08:55] VITALS: BP 125/73
[2017-07-09] MEDS: FUROSEMIDE 20 MG/2 ML IV SCH (09:18)
[2017-07-09] MEDS: CEFEPIME 2 GM in DEXTROSE 5% 100 ML IV SCH ×3 (09:18→23:02)
[2017-07-09] MEDS: morphine SULFATE 10 MG/ML, 1ML IVPush PRN (09:19)
[2017-07-09] MEDS ORDERED: SODIUM PHOSPHATE 4 MEQ/ML IV SCH (09:30)
[2017-07-09] MEDS ORDERED: SODIUM PHOSPHATE 30 MMOL in SODIUM CHLORIDE 0.9% 500 ML IV ONE (10:00)
[2017-07-09 15:36] VITALS: BP 133/80
[2017-07-09] MEDS: FLUCONAZOLE 400 MG/200 ML 200 ML IV SCH (17:39)
[2017-07-09 20:01] VITALS: BP 130/80
[2017-07-10 03:54] VITALS: BP 117/66
[2017-07-10] MEDS: METRONIDAZOLE PMX 500MG/100ML 100 ML IV SCH (04:37)
[2017-07-10] MEDS: maalox/diphenh/lido/sucralfate 5 ML PO SCH ×4 (04:37→23:00)
[2017-07-10] MEDS: NYSTATIN 500,000 UNITS/5 ML UDC PO SCH ×4 (04:37→23:13)
[2017-07-10 04:47] LABS: HEMATOCRIT 27.4 % (34.6-47.8); HEMOGLOBIN 9.2 g/dL (11.7-16.4); WHITE BLOOD COUNT 4.9 x10^3/uL (3.4-10)
[2017-07-10 05:08] LABS: ASPARTATE AMINO TRANSFERASE 28 U/L (15-37); BLOOD UREA NITROGEN 15 mg/dL (7-18)
[2017-07-10] MEDS: CEFEPIME 2 GM in DEXTROSE 5% 100 ML IV SCH ×3 (06:29→23:13)
[2017-07-10 08:02] VITALS: BP 105/53
[2017-07-10] MEDS: FUROSEMIDE 20 MG/2 ML IV SCH ×2 (08:24→15:54)
[2017-07-10] MEDS ORDERED: POTASSIUM CHLORIDE 60 MEQ in SODIUM CHLORIDE 0.9% 500 ML IV ONE (08:30)
[2017-07-10] MEDS ORDERED: FENTANYL PF 100 MCG/2ML IV PRN (12:30)
[2017-07-10] MEDS ORDERED: HYDROmorphone 1 MG/ML, 1ML IV PRN (12:30)
[2017-07-10] MEDS ORDERED: METOPROLOL 1 MG/ML, 5ML IV PRN (12:30)
[2017-07-10] MEDS ORDERED: ONDANSETRON 2MG/ML, 2ML IVPush PRN (12:30)
[2017-07-10] MEDS ORDERED: LABETALOL 5MG/ML, 20ML IV PRN (12:30)
[2017-07-10] MEDS ORDERED: hydrALAzine 20 MG/ML, 1ML IV PRN (12:30)
[2017-07-10] MEDS ORDERED: EPHEDRINE 50 MG/ML, 1ML IVPush PRN (12:30)
[2017-07-10] MEDS ORDERED: ALBUTEROL SULFATE 2.5 MG/3 ML NPPB PRN (12:30)
[2017-07-10 13:40] VITALS: BP 106/58
[2017-07-10] MEDS ORDERED: POTASSIUM CHLORIDE 40 MEQ in SODIUM CHLORIDE 0.9% 250 ML IV ONE (14:30)
[2017-07-10] MEDS: FLUCONAZOLE 400 MG/200 ML 200 ML IV SCH (15:55)
[2017-07-10 19:42] VITALS: BP 126/69
[2017-07-11 01:18] VITALS: BP 131/82
[2017-07-11 03:36] LABS: HEMATOCRIT 27.8 % (34.6-47.8); HEMOGLOBIN 9.2 g/dL (11.7-16.4); WHITE BLOOD COUNT 5.6 x10^3/uL (3.4-10)
[2017-07-11 03:48] LABS: ASPARTATE AMINO TRANSFERASE 27 U/L (15-37); BLOOD UREA NITROGEN 16 mg/dL (7-18)
[2017-07-11] MEDS: CEFEPIME 2 GM in DEXTROSE 5% 100 ML IV SCH ×3 (06:30→22:47)
[2017-07-11] MEDS: maalox/diphenh/lido/sucralfate 5 ML PO SCH ×4 (06:30→21:00)
[2017-07-11] MEDS: NYSTATIN 500,000 UNITS/5 ML UDC PO SCH ×4 (06:30→21:11)
[2017-07-11 07:30] VITALS: BP 124/73
[2017-07-11] MEDS: FUROSEMIDE 20 MG/2 ML IV SCH (09:53)
[2017-07-11 14:26] VITALS: BP 135/67
[2017-07-11] MEDS: FLUCONAZOLE 400 MG/200 ML 200 ML IV SCH (15:43)
[2017-07-11 19:30] VITALS: BP 121/85
[2017-07-12] MEDS: morphine SULFATE 10 MG/ML, 1ML IVPush PRN (01:03)
[2017-07-12 01:09] VITALS: BP 117/78
[2017-07-12] MEDS: NYSTATIN 500,000 UNITS/5 ML UDC PO SCH ×4 (06:03→21:20)
[2017-07-12] MEDS: maalox/diphenh/lido/sucralfate 5 ML PO SCH ×4 (06:04→21:00)
[2017-07-12 06:30] VITALS: BP 115/80
[2017-07-12 06:35] LABS: HEMOGLOBIN 9.4 g/dL (11.7-16.4); WHITE BLOOD COUNT 6.8 x10^3/uL (3.4-10)
[2017-07-12 06:39] LABS: ASPARTATE AMINO TRANSFERASE 21 U/L (15-37); BLOOD UREA NITROGEN 21 mg/dL (7-18)
[2017-07-12] MEDS: CEFEPIME 2 GM in DEXTROSE 5% 100 ML IV SCH ×3 (07:33→23:13)
[2017-07-12] MEDS: FUROSEMIDE 20 MG/2 ML IV SCH (09:47)
[2017-07-12 13:46] VITALS: BP 119/62
[2017-07-12] MEDS ORDERED: BISACODYL 10 MG SUPP PR PRN (19:30)
[2017-07-12] MEDS ORDERED: morphine SULFATE 10 MG/ML, 1ML IVPush PRN (19:30)
[2017-07-12] MEDS ORDERED: POLYETHYLENE GLYCOL 17 GM PACKET PO PRN (19:30)
[2017-07-12 19:43] VITALS: BP 136/86
[2017-07-12] MEDS: HEPARIN 5,000 UNITS/ML, 1ML SQ SCH (21:20)
[2017-07-13 03:30] VITALS: BP 113/73
[2017-07-13] MEDS: NYSTATIN 500,000 UNITS/5 ML UDC PO SCH ×4 (05:04→20:50)
[2017-07-13] MEDS: HEPARIN 5,000 UNITS/ML, 1ML SQ SCH ×3 (05:04→20:51)
[2017-07-13 05:34] LABS: HEMATOCRIT 28.5 % (34.6-47.8); HEMOGLOBIN 9.7 g/dL (11.7-16.4); WHITE BLOOD COUNT 6.8 x10^3/uL (3.4-10)
[2017-07-13 06:12] LABS: ASPARTATE AMINO TRANSFERASE 22 U/L (15-37); BLOOD UREA NITROGEN 24 mg/dL (7-18)
[2017-07-13] MEDS: maalox/diphenh/lido/sucralfate 5 ML PO SCH ×4 (06:29→20:52)
[2017-07-13 07:43] VITALS: BP 121/80
[2017-07-13] MEDS: CEFEPIME 2 GM in DEXTROSE 5% 100 ML IV SCH ×3 (08:26→22:51)
[2017-07-13] MEDS: FUROSEMIDE 20 MG/2 ML IV SCH (08:27)
[2017-07-13 15:01] VITALS: BP 104/70
[2017-07-13 19:57] VITALS: BP 122/76
[2017-07-14 04:04] VITALS: BP 121/70
[2017-07-14] MEDS: HEPARIN 5,000 UNITS/ML, 1ML SQ SCH ×3 (06:29→21:00)
[2017-07-14] MEDS: maalox/diphenh/lido/sucralfate 5 ML PO SCH ×4 (06:29→21:00)
[2017-07-14] MEDS: CEFEPIME 2 GM in DEXTROSE 5% 100 ML IV SCH ×3 (06:29→23:20)
[2017-07-14] MEDS: NYSTATIN 500,000 UNITS/5 ML UDC PO SCH ×4 (06:29→21:00)
[2017-07-14 07:49] VITALS: BP 115/69
[2017-07-14] MEDS: FUROSEMIDE 20 MG/2 ML IV SCH (08:56)
[2017-07-14 13:03] VITALS: BP 114/44
[2017-07-14 19:54] VITALS: BP 122/74
[2017-07-15 04:29] VITALS: BP 129/79
[2017-07-15] MEDS: NYSTATIN 500,000 UNITS/5 ML UDC PO SCH ×4 (05:49→20:19)
[2017-07-15] MEDS: HEPARIN 5,000 UNITS/ML, 1ML SQ SCH ×3 (05:49→20:20)
[2017-07-15 06:06] LABS: HEMATOCRIT 28.4 % (34.6-47.8); HEMOGLOBIN 9.6 g/dL (11.7-16.4); WHITE BLOOD COUNT 6.1 x10^3/uL (3.4-10)
[2017-07-15 06:15] LABS: BLOOD UREA NITROGEN 27 mg/dL (7-18)
[2017-07-15 06:18] LABS: ASPARTATE AMINO TRANSFERASE 20 U/L (15-37)
[2017-07-15] MEDS: maalox/diphenh/lido/sucralfate 5 ML PO SCH ×4 (07:00→20:20)
[2017-07-15] MEDS: CEFEPIME 2 GM in DEXTROSE 5% 100 ML IV SCH ×3 (07:50→23:30)
[2017-07-15 08:00] VITALS: BP 103/70
[2017-07-15] MEDS: FUROSEMIDE 20 MG/2 ML IV SCH (09:18)
[2017-07-15 17:14] VITALS: BP 119/75
[2017-07-15 19:26] VITALS: BP 108/69
[2017-07-15] MEDS: DIPHENHYDRAMINE 50 MG/ML, 1ML IVPush PRN (23:30)
[2017-07-16 00:33] VITALS: BP 115/81
[2017-07-16 04:13] LABS: ASPARTATE AMINO TRANSFERASE 21 U/L (15-37); BLOOD UREA NITROGEN 31 mg/dL (7-18)
[2017-07-16] MEDS: HEPARIN 5,000 UNITS/ML, 1ML SQ SCH ×3 (05:17→20:44)
[2017-07-16] MEDS: NYSTATIN 500,000 UNITS/5 ML UDC PO SCH ×4 (06:00→20:38)
[2017-07-16] MEDS: maalox/diphenh/lido/sucralfate 5 ML PO SCH ×4 (07:00→20:38)
[2017-07-16 07:22] VITALS: BP 110/75
[2017-07-16] MEDS: CEFEPIME 2 GM in DEXTROSE 5% 100 ML IV SCH (07:41)
[2017-07-16] MEDS: FUROSEMIDE 20 MG/2 ML IV SCH (09:23)
[2017-07-16 13:22] VITALS: BP 133/89
[2017-07-16 19:09] VITALS: BP 116/84
[2017-07-16] MEDS: DIPHENHYDRAMINE 50 MG/ML, 1ML IVPush PRN (23:30)
[2017-07-17 03:12] VITALS: BP 117/79
[2017-07-17] MEDS: NYSTATIN 500,000 UNITS/5 ML UDC PO SCH ×4 (05:34→19:57)
[2017-07-17] MEDS: HEPARIN 5,000 UNITS/ML, 1ML SQ SCH ×3 (05:35→19:57)
[2017-07-17] MEDS: maalox/diphenh/lido/sucralfate 5 ML PO SCH ×4 (07:30→19:58)
[2017-07-17 07:53] VITALS: BP 112/71
[2017-07-17] MEDS: FUROSEMIDE 20 MG/2 ML IV SCH (09:09)
[2017-07-17 13:40] VITALS: BP 97/67
[2017-07-17 19:16] VITALS: BP 102/71
[2017-07-18 01:54] VITALS: BP 105/76
[2017-07-18] MEDS: NYSTATIN 500,000 UNITS/5 ML UDC PO SCH ×3 (05:57→16:00)
[2017-07-18] MEDS: HEPARIN 5,000 UNITS/ML, 1ML SQ SCH ×2 (05:57→14:59)
[2017-07-18] MEDS: maalox/diphenh/lido/sucralfate 5 ML PO SCH ×3 (05:57→16:00)
[2017-07-18 07:00] LABS: HEMATOCRIT 30.5 % (34.6-47.8); HEMOGLOBIN 10.1 g/dL (11.7-16.4); WHITE BLOOD COUNT 6.5 x10^3/uL (3.4-10)
[2017-07-18] MEDS ORDERED: CATHFLO-ALTEPLASE 2 MG/2 ML CATHFLUSH ONE (07:00)
[2017-07-18 07:10] VITALS: BP 118/83
[2017-07-18 07:11] LABS: ASPARTATE AMINO TRANSFERASE 24 U/L (15-37); BLOOD UREA NITROGEN 33 mg/dL (7-18)
[2017-07-18] MEDS ORDERED: NYST1000 PO (13:13)
[2017-07-18 13:50] VITALS: BP 96/64
== END 2017-07-18 16:52 | DRG 871 ==
LOC: ED 23:18 → SUATTDRO 23:29 → EDIP 23:38 → 5SO 06-26 01:10 → 3NW 06-26 13:34
PROVIDERS: ADMIT Internal Medicine; ATTEND Family Medicine
PROC: 5A09357 Assistance with Respiratory Ventilation, Less than 24 Consecutive Hours, Continuous Positive Airway Pressure (ICD-10-PCS; 2017-06-25)
PROC: 0DJ08ZZ Inspection of Upper Intestinal Tract, Via Natural or Artificial Opening Endoscopic (ICD-10-PCS; principal; 2017-07-10 11:30)
DX: A41.9 Sepsis, unspecified organism (principal); D61.810 Antineoplastic chemotherapy induced pancytopenia; J96.01 Acute respiratory failure with hypoxia; I21.4 Non-ST elevation (NSTEMI) myocardial infarction; E43 Unspecified severe protein-calorie malnutrition; I50.33 Acute on chronic diastolic (congestive) heart failure; J90 Pleural effusion, not elsewhere classified; J18.9 Pneumonia, unspecified organism; N17.9 Acute kidney failure, unspecified; B37.81 Candidal esophagitis; I31.3 Pericardial effusion (noninflammatory); J98.11 Atelectasis; C21.1 Malignant neoplasm of anal canal; I42.9 Cardiomyopathy, unspecified; Z68.28 Body mass index [BMI] 28.0-28.9, adult; D70.1 Agranulocytosis secondary to cancer chemotherapy; I11.0 Hypertensive heart disease with heart failure; G47.33 Obstructive sleep apnea (adult) (pediatric); G60.0 Hereditary motor and sensory neuropathy; H91.90 Unspecified hearing loss, unspecified ear; I27.2 Other secondary pulmonary hypertension; K12.31 Oral mucositis (ulcerative) due to antineoplastic therapy; K44.9 Diaphragmatic hernia without obstruction or gangrene; B96.20 Unspecified Escherichia coli [E. coli] as the cause of diseases classified elsewhere; M81.0 Age-related osteoporosis without current pathological fracture; T45.1X5A Adverse effect of antineoplastic and immunosuppressive drugs, initial encounter; Z66 Do not resuscitate; Z90.710 Acquired absence of both cervix and uterus; Z92.3 Personal history of irradiation; Z90.89 Acquired absence of other organs; Z79.899 Other long term (current) drug therapy
CPT/HCPCS: 36415; 71010; 71275; 74220; 74230; 74340; 77280; 77300; 77336; 77338; 77386; 80048; 80053; 80061; 80202; 81001; 83605; 83735; 83880; 84100; 84145; 84443; 84484; 85025; 85651; 86140; 86361; 87040; 87070; 87077; 87081; 87086; 87186; 87205; 87324; 87633; 93005; 93306; 94640; 94660; 96374; 96375; J1450; J1644; J1650; J1885; J1940; J2405; J2543; J2997; J3010; J3370; J3480; J7611; J7613; J7620; P9047; Q9967; C1751; C1769; J1200; J1447; J2270; J7030; J7040; J7050

== ENCOUNTER 2017-12-10 08:23 | Day surgery (SDC) | payer MEDICARE ==
[~2017-12-10] VITALS: Ht 142.2 cm; Wt 58.4 kg
[~2017-12-10 08:23] MED LIST changes: +NYST1000 PO
[2017-12-10] MEDS ORDERED: FENTANYL PF 100 MCG/2ML ONE (09:04)
[2017-12-10] MEDS ORDERED: MIDAZOLAM 1 MG/ML, 2ML ONE (09:04)
[2017-12-10] MEDS ORDERED: FLUMAZENIL 0.1 MG/1 ML, 5ML ONE (09:05)
[2017-12-10] MEDS ORDERED: NALOXONE 1 MG/ML, 2ML ONE (09:05)
[2017-12-10] MEDS ORDERED: SPIR25TA3 PO (09:22)
[2017-12-10] MEDS ORDERED: ALEN70TA3 PO (09:22)
[2017-12-10] MEDS ORDERED: SODIUM CHLORIDE 0.9% 1,000 ML IV SCH (09:22)
[2017-12-10] MEDS ORDERED: CITA20TA9 PO (09:22)
[2017-12-10] MEDS ORDERED: MULT-6 PO (09:22)
[2017-12-10 09:23] VITALS: BP 124/74
[2017-12-10] MEDS ORDERED: LIDOCAINE 1%, 20ML ONE (09:30)
== END 2017-12-10 11:40 ==
LOC: RAD 08:23
PROVIDERS: ATTEND Internal Medicine Hematology & Oncology
DX: Z45.2 Encounter for adjustment and management of vascular access device (principal); C21.0 Malignant neoplasm of anus, unspecified; I25.2 Old myocardial infarction; Z87.39 Personal history of other diseases of the musculoskeletal system and connective tissue; Z98.890 Other specified postprocedural states; Z90.710 Acquired absence of both cervix and uterus
CPT/HCPCS: 36590; 77001; 99156; 99157; J2250; J3010; J3490; J7030; 36589; J2310

== ENCOUNTER → 2017-12-23 | Outpatient (CLI) | payer MEDICARE ==
[~2017-12-23] MED LIST changes: +ALEN70TA3 PO; +CITA20TA9 PO; +MULT-6 PO
== END | disposition home or self-care (01) ==
LOC: ROC 13:11
PROVIDERS: ATTEND Radiology Radiation Oncology
DX: C21.0 Malignant neoplasm of anus, unspecified (principal)
CPT/HCPCS: G0463

== ENCOUNTER → 2018-06-16 | Outpatient (CLI) | payer MEDICARE ==
[~2018-06-16] MED LIST changes: -CITA20TA5 PO; +CITA20TA6 PO; +OMNIPAQUE 350 MG/ML, 100ML BOTTLE ONE; -SPIR25TA3 PO; +SPIR25TA5 PO
== END | disposition home or self-care (01) ==
LOC: CFH 11:18
PROVIDERS: ATTEND Internal Medicine Hematology & Oncology
DX: K76.89 Other specified diseases of liver (principal); C21.0 Malignant neoplasm of anus, unspecified
CPT/HCPCS: 74177; 82565; Q9967

== ENCOUNTER → 2018-09-05 | Outpatient (CLI) | payer MEDICARE ==
[~2018-09-05] MED LIST changes: -LOSA50TA6 PO; +LOSA50TA7 PO; -OMNIPAQUE 350 MG/ML, 100ML BOTTLE ONE
== END | disposition home or self-care (01) ==
LOC: ROC 10:06
PROVIDERS: ATTEND Radiology Radiation Oncology
DX: Z08 Encounter for follow-up examination after completed treatment for malignant neoplasm (principal); C21.1 Malignant neoplasm of anal canal
CPT/HCPCS: G0463

== ENCOUNTER 2019-06-15 09:29 | Outpatient (CLI) | payer MEDICARE | END 2019-06-15 23:59 | disposition home or self-care (01) | LOC: CFH 09:29 | PROVIDERS: ATTEND Internal Medicine Hematology & Oncology | DX: C21.0 Malignant neoplasm of anus, unspecified (principal); D73.4 Cyst of spleen; K76.89 Other specified diseases of liver; M47.814 Spondylosis without myelopathy or radiculopathy, thoracic region | CPT/HCPCS: 71260; 74177; 82565; Q9967 ==